=== PATIENT | female | born 2000 | race Hispanic/Latino ===

== ENCOUNTER 2020-05-14 23:39 | Inpatient (IN) | payer OTHER ==
[~2020-05-14] VITALS: Ht 167.6 cm; Wt 97.1 kg
--- NOTE | 2020-05-15 08:14 | PR ---
[facility] [address] [facility] [place], [place] [address] Signed Progress Notes IP Datetime Report Generated by CPN: 05/15/2020 08:14 PROGRESS NOTES: [id number] Impression: Normal Progression of Labor Procedures: Artificial ROM Plan: Continue Present Management; Anticipate Vaginal Delivery VITAL SIGNS: [id number] Vital Signs: Reviewed; Within Normal Limits EXAM: [id number] Dilatation: 6.0 Effacement: 90 Station: 0 Contractions: every 2-4 minutes MEMBRANES: [id number] Membranes Status: Ruptured ROM Note: By Dr. Delaney Comments: Tolerating contractions well at this time, but considering Epidural. FETUS A: [id number] FHR Baseline: 130 Variability: Moderate 6-25bpm Accelerations: 15X15 Presentation: Vertex FETUS B: [id number] Signing Physician: Camila Delaney MD Copies: ~ *Electronically Signed* 05/15/20813 CAMILA DELANEY MD PATIENT NAME: DANIELLA SCOTT PROGRESS NOTE DATE OF : 99 PHYSICIAN: CAMILA DELANEY MD RPT #: [id number] REPORT IS CONFIDENTIAL AND NOT TO BE RELEASED WITHOUT AUTHORIZATION
--- NOTE | 2020-05-15 12:42 | PR ---
[facility] [address] [place] [facility] [place], [place] [address] Signed Progress Notes IP Datetime Report Generated by CPN: 05/15/2020 12:42 PROGRESS NOTES: [id number] Impression: Normal Progression of Labor Other Impressions: Slow progress Procedures: Epidural Placement Plan: Augmentation VITAL SIGNS: [id number] Vital Signs: Reviewed; Within Normal Limits EXAM: [id number] Dilatation: 6.0 Effacement: 90 Station: 0 Contractions: every 2-4 minutes MEMBRANES: [id number] Membranes Status: Ruptured ROM Note: By Dr. Delaney Comments: Patient getting very uncomofrtable, but no change in dilation, so Epidural ordered (Anesthesia here for Epidural now). Will start Pitocin augmentation after comfortable with Epidural. FETUS A: [id number] FHR Baseline: 130 Variability: Moderate 6-25bpm Accelerations: 15X15 Presentation: Vertex FETUS B: [id number] Signing Physician: Brain Delaney MD Copies: ~ *Electronically Signed* 05/15/20 1242 BRAIN DELANEY MD PATIENT NAME: DANIELLA SCOTT [place] PROGRESS NOTE DATE OF : 99 PHYSICIAN: BRAIN DELANEY MD RPT #: [id number] REPORT IS CONFIDENTIAL AND NOT TO BE RELEASED WITHOUT AUTHORIZATION
--- NOTE | 2020-05-15 15:54 | PR ---
[facility] [address] [facility] [place], [place] [address] Signed Progress Notes IP Datetime Report Generated by CPN: 05/15/2020 15:54 PROGRESS NOTES: [id number] Impression: Normal Progression of Labor Other Impressions: Slow Progress Procedures: Intrauterine Pressure Catheter; Scalp Electrode Plan: Augmentation VITAL SIGNS: [id number] Vital Signs: Reviewed; Within Normal Limits EXAM: [id number] Dilatation: 8.0 Effacement: 90 Station: 1 Contractions: every 2-4 minutes MEMBRANES: [id number] Membranes Status: Ruptured ROM Note: By Dr. Delaney Comments: Trouble with Epidural working, but patient finally comfortable. Patient made good progress from 6 to 8 cm, so Pitocin not started, but now stalled @ 8 cm, so will start Pitocin augmentation now. FETUS A: [id number] FHR Baseline: 130 Variability: Moderate 6-25bpm Accelerations: 15X15 Presentation: Vertex FETUS B: [id number] Signing Physician: Camila Delaney MD Copies: ~ *Electronically Signed* 05/15/20 1554 CAMILA DELANEY MD PATIENT NAME: DANIELLA SCOTT PROGRESS NOTE DATE OF : 99 PHYSICIAN: CAMILA DELANEY MD RPT #: [id number] REPORT IS CONFIDENTIAL AND NOT TO BE RELEASED WITHOUT AUTHORIZATION
[2020-05-16] MEDS ORDERED: PRENATAL VITAM1 EAC8 PO (02:00)
--- NOTE | 2020-05-16 12:01 | PR ---
[facility] [address] [place] [address] Signed PP Progress Notes Datetime Report Generated by CPN: 05/16/2020 12:01 SUBJECTIVE: [id number] Pain: Within Normal Limits Nausea/Vomiting: Denies Vital Signs: [id number] Vital Signs: Reviewed; Within Normal Limits Notable Details: PP Hgb/Hct = 11.5/34.8 Abdomen/Uterus: Normal Lochia: Normal Extremities: Normal IMPRESSION/PLAN/PROCEDURES: [id number] Impression: Normal Progression Plan: Continue Present Management Procedures: None Progress Notes: Doing well, without complaint. Tolerating food well, minimal bleeding. Signing Physician: Camila Delaney MD Copies: ~ *Electronically Signed* 05/16/20 1201 CAMILA DELANEY MD PATIENT NAME: DANIELLA SCOTT PROGRESS NOTE DATE OF : 99 PHYSICIAN: CAMILA DELANEY MD RPT #: [id number] REPORT IS CONFIDENTIAL AND NOT TO BE RELEASED WITHOUT AUTHORIZATION
--- NOTE | 2020-05-17 09:01 | PR ---
[facility] [address] [facility] [place] [address] Signed PP Progress Notes Datetime Report Generated by CPN: 05/17/2020 09:01 SUBJECTIVE: [id number] Pain: Within Normal Limits Nausea/Vomiting: Denies Vital Signs: [id number] Vital Signs: Reviewed; Within Normal Limits Notable Details: PP Hgb/Hct = 11.5/34.8 EXAM: Ongoing Abdomen/Uterus: Normal Lochia: Normal Extremities: Normal IMPRESSION/PLAN/PROCEDURES: [id number] Impression: Normal Progression Plan: Discharge Procedures: None Progress Notes: Doing well, without complaint, ready to go home. Signing Physician: Camila Delaney MD Copies: ~ *Electronically Signed* 05/17/20900 CAMILA DELANEY MD PATIENT NAME: DANIELLA SCOTT PROGRESS NOTE DATE OF : 99 PHYSICIAN: CAMILA DELANEY MD RPT #: [id number] REPORT IS CONFIDENTIAL AND NOT TO BE RELEASED WITHOUT AUTHORIZATION
== END 2020-05-17 10:16 | disposition home or self-care (01) | DRG 807 ==
LOC: FBCO → FBC 05-15 00:35
PROVIDERS: ADMIT General Practice; ATTEND General Practice
PROC: 10E0XZZ Delivery of Products of Conception, External Approach (ICD-10-PCS; principal; 2020-05-15)
PROC: 0HQ9XZZ Repair Perineum Skin, External Approach (ICD-10-PCS; 2020-05-15)
PROC: 0UQMXZZ Repair Vulva, External Approach (ICD-10-PCS; 2020-05-15)
PROC: 10907ZC Drainage of Amniotic Fluid, Therapeutic from Products of Conception, Via Natural or Artificial Opening (ICD-10-PCS; 2020-05-15)
PROC: 10H07YZ Insertion of Other Device into Products of Conception, Via Natural or Artificial Opening (ICD-10-PCS; 2020-05-15)
PROC: 00HU33Z Insertion of Infusion Device into Spinal Canal, Percutaneous Approach (ICD-10-PCS; 2020-05-15)
PROC: 3E0R3BZ Introduction of Anesthetic Agent into Spinal Canal, Percutaneous Approach (ICD-10-PCS; 2020-05-15)
DX: O70.0 First degree perineal laceration during delivery (principal); Z37.0 Single live birth; Z3A.40 40 weeks gestation of pregnancy; O71.82 Other specified trauma to perineum and vulva; Z20.822 Contact with and (suspected) exposure to COVID-19
CPT/HCPCS: 01960; 36415; 85027; A9270; C9803; J2001; J2590; J2795; J7121

== ENCOUNTER 2022-10-07 18:47 | Inpatient (IN) | payer OTHER ==
[~2022-10-07 18:47] MED LIST: PRENATAL VITAM1 EAC8 PO
[2022-10-07 23:28] VITALS: BP 102/60
--- NOTE | 2022-10-08 07:04 | PR ---
[facility] [address] [place], [place] [address] Signed Progress Notes IP Datetime Report Generated by CPN: 10/08/2022 07:04 PROGRESS NOTES: [id number] Impression: Reassuring Heart Rate Plan: Continue Present Management Other Plans: Will consider IUPC and pitocin augmentation once medical staff assistant availa Informed Consent Obtain: Vaginal Delivery VITAL SIGNS: [id number] Vital Signs: Reviewed; Within Normal Limits EXAM: [id number] Dilatation: 5.0 Effacement: 80 Station: -2 Contractions: q 3-4 min per pt MEMBRANES: [id number] ROM Note: Dr Wills updated on nitrazine and possible SROM. States to call it SROM at 0155 Comments: Pt seen and evaluated. Doing well. Comfortable. SROM overnight and continues to leak small amount of fluid. Rare irregular contractions. Discussed likely need for pitocin augmentation and IUPC. Awaiting additional nursing staff and will start augmentation as soon as we are able. FETUS A: [id number] FHR Baseline: 115 Variability: Moderate 6-25bpm Accelerations: 15X15 Decelerations: None FHR Category: Category I Presentation: Vertex Comments on Fetus A: No evidence of metabolic acidosis FETUS B: [id number] Signing Physician: Leslie Wills DO Copies: ~ *Electronically Signed* 10/08/22 0704 LESLIE WILLS (ADITYA) DO PATIENT NAME: DANIELLA SCOTT PROGRESS NOTE DATE OF : 99 PHYSICIAN: LESLIE WILLS (JD) DO RPT #: [id number] REPORT IS CONFIDENTIAL AND NOT TO BE RELEASED WITHOUT AUTHORIZATION
--- NOTE | 2022-10-08 10:14 | PR ---
[facility] [address] [place], [place] [address] Signed Progress Notes IP Datetime Report Generated by CPN: 10/08/2022 10:13 PROGRESS NOTES: [id number] Impression: Reassuring Heart Rate Procedures: Artificial ROM; Intrauterine Pressure Catheter Plan: Augmentation Other Plans: Will consider IUPC and pitocin augmentation once medical staff services coordinator availa Informed Consent Obtain: Vaginal Delivery VITAL SIGNS: [id number] Vital Signs: Reviewed; Within Normal Limits EXAM: [id number] Dilatation: 5.0 Effacement: 70 Station: -2 Contractions: q 3-4 min per pt MEMBRANES: [id number] ROM Note: Dr Wills updated on nitrazine and possible SROM. States to call it SROM at 0155 Comments: Pt seen and examined. Reports continues to leak small amount of fluid but rare contractions. On exam, 5/70/-3 w/ bulging membranes. Cephalic. AROM performed for moderate amount of clear fluid, IUPC placed w/ out difficulty, and pitocin discussed. Pt agrees w/ recommendation for pitocin augmentation. FETUS A: [id number] FHR Baseline: 115 Variability: Moderate 6-25bpm Accelerations: 15X15 Decelerations: None FHR Category: Category I Presentation: Vertex Comments on Fetus A: No evidence of metabolic acidosis FETUS B: [id number] Signing Physician: Leslie Wills DO Copies: ~ *Electronically Signed* 10/08/22 1013 LESLIE WILLS (ADITYA) DO PATIENT NAME: DANIELLA SCOTT PROGRESS NOTE DATE OF : 99 PHYSICIAN: LESLIE WILLS (JD) DO RPT #: [id number] REPORT IS CONFIDENTIAL AND NOT TO BE RELEASED WITHOUT AUTHORIZATION
--- NOTE | 2022-10-08 13:22 | PR ---
[facility] [address] [place], [place] [address] Signed Progress Notes IP Datetime Report Generated by CPN: 10/08/2022 13:22 PROGRESS NOTES: [id number] Impression: Normal Progression of Labor; Reassuring Heart Rate Procedures: Sterile Vag Exam Plan: Continue Present Management; Anticipate Vaginal Delivery Other Plans: Will consider IUPC and pitocin augmentation once manager staffing availa Informed Consent Obtain: Vaginal Delivery VITAL SIGNS: [id number] Vital Signs: Reviewed; Within Normal Limits EXAM: [id number] Dilatation: 7.5 Effacement: 80 Station: -2 Contractions: q 3-4 min per pt MEMBRANES: [id number] ROM Note: Dr Wills updated on nitrazine and possible SROM. States to call it SROM at 0155 Comments: Pt seen and examined. More comfortable w/ contractions but c/o "inside and low" pain. On cx exam, pt w/ very thin reducable anterior lip of cervix. Discussed anticipated course of 2nd stage of labor FETUS A: [id number] FHR Baseline: 115 Variability: Moderate 6-25bpm Accelerations: 15X15 Decelerations: None FHR Category: Category I Presentation: Vertex Comments on Fetus A: No evidence of metabolic acidosis FETUS B: [id number] Signing Physician: Leslie Wills DO Copies: ~ *Electronically Signed* 10/08/22 2019 LESLIE WILLS (ADITYA) DO PATIENT NAME: DANIELLA SCOTT PROGRESS NOTE DATE OF : 99 PHYSICIAN: LESLIE WILLS (JD) DO RPT #: [id number] REPORT IS CONFIDENTIAL AND NOT TO BE RELEASED WITHOUT AUTHORIZATION
--- NOTE | 2022-10-09 07:51 | PR ---
[facility] [address] [place], [place] [address] Signed PP Progress Notes Datetime Report Generated by CPN: 10/09/2022 07:51 SUBJECTIVE: [id number] Pain: Within Normal Limits Nausea/Vomiting: Denies Flatus: Yes Bowel Movement: No Vital Signs: [id number] Vital Signs: Reviewed; Within Normal Limits EXAM: Ongoing Cardiovascular: Normal Respiratory: Normal Abdomen/Uterus: Normal Lochia: Normal Vulva/Perineum: Not Done Breasts: Not Done CVA Tenderness: Normal Extremities: Normal Incision: Not Applicable Progress: Normal Exam Comments: Fundus firm U-2 nontender IMPRESSION/PLAN/PROCEDURES: [id number] Impression: Normal Progression Plan: Discharge Progress Notes: Pt seen and examined. Doing well. Ambulating, voiding, and tolerating full diet. Pain and lochia minimal. well. No fevers/chills or other concerns. Desires d/c home today. Reviewed d/c instructions, medications, and followup. Undecided on pp contraception and we reviewed options in detail. All questions answered. Signing Physician: Leslie Wills DO Copies: ~ *Electronically Signed* 10/09/22 0755 LESLIE WILLS (ADITYA) DO PATIENT NAME: DANIELLA SCOTT PROGRESS NOTE DATE OF : 99 PHYSICIAN: LESLIE WILLS (JD) DO RPT #: [id number] REPORT IS CONFIDENTIAL AND NOT TO BE RELEASED WITHOUT AUTHORIZATION
--- NOTE | 2022-10-09 13:19 | NUR ---
MOM AND BABY IN BED. BABY RESTING CONTENTEDLY. DAD IN CHAIR. MOM AND DAD BOTH IN GOOD SPIRITS. BOTH INTERACTED LOVINGLY WITH BABY. CONSENTED TO PRAYER. PRAYED FOR GOOD BEGINNINGS AND LASTING PEACE.
== END 2022-10-09 16:00 | disposition home or self-care (01) | DRG 807 ==
LOC: FBCO 18:47 → FBC 21:20
PROVIDERS: ADMIT Obstetrics & Gynecology; ATTEND Obstetrics & Gynecology
PROC: 10E0XZZ Delivery of Products of Conception, External Approach (ICD-10-PCS; principal; 2022-10-08)
PROC: 10907ZC Drainage of Amniotic Fluid, Therapeutic from Products of Conception, Via Natural or Artificial Opening (ICD-10-PCS; 2022-10-08)
PROC: 10H07YZ Insertion of Other Device into Products of Conception, Via Natural or Artificial Opening (ICD-10-PCS; 2022-10-08)
PROC: 3E0R3BZ Introduction of Anesthetic Agent into Spinal Canal, Percutaneous Approach (ICD-10-PCS; 2022-10-08)
PROC: 00HU33Z Insertion of Infusion Device into Spinal Canal, Percutaneous Approach (ICD-10-PCS; 2022-10-08)
PROC: 10H07YZ Insertion of Other Device into Products of Conception, Via Natural or Artificial Opening (ICD-10-PCS; 2022-10-08)
DX: O76 Abnormality in fetal heart rate and rhythm complicating labor and delivery (principal); Z37.0 Single live birth; Z3A.39 39 weeks gestation of pregnancy
CPT/HCPCS: 01960; 36415; 59025; 85027; 86850; 86900; 86901; A9270; G0463; J2210; J2590